=== PATIENT | male | born 1965 | race Caucasian/White ===

== ENCOUNTER 2021-02-13 14:23 | Inpatient (IN) | payer OTHER ==
[2021-02-13 15:01] LABS: PTT,PARTIAL THROMBOPLSTIN TIME 24.7 SEC (25.6-32.8)
[2021-02-13 15:04] LABS: ANION GAP 17.6 mmol/L (5-15); CHLORIDE,CL 103 mmol/L (98-107); SODIUM,NA 141 mmol/L (136-145)
--- NOTE | 2021-02-13 15:13 | EDM.PDOC ---
ED HPI GENERAL MEDICAL PROBLEM - General Chief Complaint: Neuro Symptoms/Deficits Stated Complaint: LEFT SIDED NUMBNESS Time Seen by Provider: 02/13/21 14:23 Source of Information: Reports: Patient History Limitations: Reports: No Limitations - History of Present Illness INITIAL COMMENTS - FREE TEXT/NARRATIVE: She comes into the emergency department as a stroke code. Patient walked in stating that he had left facial numbness left arm numbness and left leg numbness. Patient states that started approximately 15 minutes prior to arrival. Patient states he was just getting ready to pull out of the parking lot when he noticed the numbness and tingling. Patient was at the local [place] arena cooking food throughout most of the weekend. He states that he did do some heavy lifting and twisting motions throughout the weekend but did not notice any issues or difficulty other than his normal aches and pains as he states. He states this was a sudden onset of redness numbness and tingling on the left side. He denies any chest pain, shortness of breath, dizziness, lightheadedness, change in vision, abdominal pain, peripheral edema, or genitourinary concerns. Patient states he is been relatively healthy has no COVID-19 symptoms. Onset: Sudden Location: Reports: Head Quality: Reports: Other Severity: Mild Improves with: Reports: None Worsens with: Reports: Immobilization Associated Symptoms: Reports: Other - Related Data Allergies Allergy/AdvReac Type Severity Reaction Status Date / Time No Known Allergies Allergy Verified 02/13/21 15:53 Home Meds: Home Meds Aspirin 81 mg PO DAILY 02/13/21 [History] atorvaSTATin [Lipitor] 40 mg PO BEDTIME 02/13/21 [History] ED ROS GENERAL - Review of Systems Review Of Systems: Comprehensive ROS is negative, except as noted in HPI. Constitutional: Reports: No Symptoms HEENT: Reports: No Symptoms Respiratory: Reports: No Symptoms Cardiovascular: Reports: No Symptoms Endocrine: Reports: No Symptoms GI/Abdominal: Reports: No Symptoms : Reports: No Symptoms Musculoskeletal: Reports: No Symptoms Skin: Reports: No Symptoms Neurological: Reports: No Symptoms Psychiatric: Reports: No Symptoms Hematologic/Lymphatic: Reports: No Symptoms Immunologic: Reports: No Symptoms ED EXAM, GENERAL - Physical Exam Exam: See Below Exam Limited By: No Limitations General Appearance: Alert, WD/WN, No Apparent Distress Ears: Normal External Exam, Normal Canal, Hearing Grossly Normal, Normal TMs Ear Exam: Bilateral Ear: Auricle Normal, Canal Normal, TM normal Nose: Normal Inspection, Normal Mucosa, No Blood Throat/Mouth: Normal Inspection, Normal Lips, Normal Teeth, Normal Gums, Normal Oropharynx, Normal Voice, No Airway Compromise Head: Atraumatic, Normocephalic Neck: Normal Inspection, Supple, Non-Tender, Full Range of Motion Respiratory/Chest: No Respiratory Distress, Lungs Clear, Normal Breath Sounds, No Accessory Muscle Use, Chest Non-Tender Cardiovascular: Normal Peripheral Pulses, Regular Rate, Rhythm, No Edema, No Gallop, No JVD, No Murmur, No Rub GI/Abdominal: Normal Bowel Sounds, Soft, Non-Tender, No Organomegaly, No Distention, No Abnormal Bruit, No Mass (Male) Exam: No Hernia, Normal Inspection, Normal Prostate, Circumcised Extremities: Normal Inspection, Normal Range of Motion, Non-Tender, Normal Capillary Refill, No Pedal Edema Neurological: Alert, Oriented, CN II-XII Intact, Normal Cognition, Normal Gait, Normal Reflexes, Sensory/Motor Deficit (left side. sharp sensation dulled ) Psychiatric: Normal Affect, Normal Mood Skin Exam: Warm, Dry, Intact, Normal Color, No Rash Lymphatic: No Adenopathy #1 Interpretation EKG Date: 02/13/21 Time: 14:34 Rhythm: NSR [place]: Normal P-Wave: Present QRS: Normal ST-T: Normal QT: Normal Comparison: NA - No Prior EKG Course - Orders/Labs/Meds Orders: Active Orders 24 hr Category Date Time Status Patient Status [ADT] Routine ADT 02/13/21 16:03 Active Height and Weight [RC] UPON Care 02/13/21 16:03 Active Intake and Output [RC] QSHIFT Care 02/13/21 16:04 Active May Shower [RC] Care 02/13/21 16:03 Active Oxygen Therapy [RC] .PRN Care 02/13/21 16:03 Active Up With Assistance [RC] Care 02/13/21 16:03 Active VTE/DVT Education [RC] .PRN Care 02/13/21 16:03 Active Vital Signs [RC] 02,06,10,14,18,22 Care 02/13/21 16:03 Active Consult to Case Management/Wood Scrap Handler [CONS] Cons 02/13/21 16:03 Active Routine Consult to Speech Language Pathology [PLANT PROTECTION OFFICER Evaluation Cons 02/13/21 16:06 Active and Treatment] [CONS] Routine OT Evaluation and Treatment [CONS] Routine Cons 02/13/21 16:03 Active PT Evaluation and Treatment [CONS] Routine Cons 02/13/21 16:03 Active BMP [BASIC METABOLIC PANEL,BMP] [CHEM] Routine Lab 02/14/21 05:11 Ordered CBC WITH AUTO DIFF [HEME] Routine Lab 02/14/21 05:11 Ordered CORONAVIRUS COVID-19 RAPID [MOLEC] Stat Lab 02/13/21 16:01 Ordered Aspirin Med 02/14/21 08:00 Ordered 81 mg PO DAILY Sodium Chloride 0.9% [Normal Saline] 1,000 ml Med 02/13/21 16:15 Ordered IV ASDIRECTED atorvaSTATin [Lipitor] Med 02/13/21 20:00 Ordered 40 mg PO BEDTIME Resuscitation Status Routine Resus Stat 02/13/21 16:03 Ordered Medication Orders Aspirin (Aspirin 81 Mg Tab.Chew) 81 mg PO DAILY RAJESH Atorvastatin Calcium (Atorvastatin 40 Mg Tab) 40 mg PO BEDTIME RAJESH Sodium Chloride (Normal Saline) 1,000 mls @ 50 mls/hr IV ASDIRECTED RAJESH Labs: Laboratory Tests 02/13/21 02/13/21 02/13/21 Range/Units 14:35 14:35 14:35 WBC 7.4 (4.0-10.0) x10^3/uL RBC 4.81 (4.5-6.0) x10^6/uL Hgb 15.0 (14.0-18.0) g/dL Hct 41.6 (40.0-52.0) % MCV 86.5 (78.0-93.0) fL MCH 31.2 (26.0-32.0) pg MCHC 36.1 H (32.0-36.0) g/dL RDW Coeff of [place] 12.1 (10.0-15.0) % Plt Count 247 (130-400) x10^3/uL Immature Gran % (Auto) 0.10 (0.00-0.43) % Neut % (Auto) 75.3 (50.0-80.0) % Lymph % (Auto) 15.7 L (25.0-50.0) % [place] % (Auto) 8.5 (2.0-11.0) % Eos % (Auto) 0.1 (0.0-4.0) % Baso % (Auto) 0.3 (0.2-1.2) % Neut # (Auto) 5.6 (1.8-7.7) x10^3/uL Lymph # (Auto) 1.2 (1.0-4.8) x10^3/uL [place] # (Auto) 0.6 (0.0-0.8) x10^3/uL Eos # (Auto) 0.0 (0.0-0.5) x10^3/uL Baso # (Auto) 0.0 (0.0-0.2) x10^3/uL Immature Gran # (Auto) 0.01 (0.00-0.07) x10^3/uL PT 9.9 (9.9-12.5) SEC INR 0.9 L (2.0-3.5) APTT 24.7 L (25.6-32.8) SEC Sodium 141 (136-145) mmol/L Potassium 3.6 (3.5-5.1) mmol/L Chloride 103 (98-107) mmol/L Carbon Dioxide 24 (21-32) mmol/L Anion Gap 17.6 H (5-15) mmol/L BUN 16 (7-18) mg/dL Creatinine 1.1 (0.70-1.30) mg/dL Est Cr Clr Drug Dosing TNP Estimated GFR (MDRD) > 60 Glucose 95 (70-99) mg/dL Calcium 8.7 (8.5-10.1) mg/dL Troponin I High Sens 5 (<=76) ng/L Meds: Medications Generic Name Dose Route Start Last Admin Trade Name Freq PRN Reason Stop Dose Admin Aspirin 81 mg 02/14/21 08:00 Aspirin 81 Mg Tab.Chew PO DAILY RAJESH Atorvastatin Calcium 40 mg 02/13/21 20:00 Atorvastatin 40 Mg Tab PO BEDTIME [facility] Sodium Chloride 1,000 mls @ 50 mls/hr 02/13/21 16:15 Normal Saline IV ASDIRECTED RAJESH Departure - Departure Time of Disposition: 16:00 Disposition: Admitted As Inpatient 67 Clinical Impression: TIA (transient ischemic attack) - Discharge Information Referrals: Haydee Samson NP [Primary Care Provider] - Forms: ED Department Discharge - My Orders Last 24 Hours: My Active Orders 02/13/21 16:01 CORONAVIRUS COVID-19 RAPID [MOLEC] Stat - Assessment/Plan Last 24 Hours: My Active Orders 02/13/21 16:01 CORONAVIRUS COVID-19 RAPID [MOLEC] Stat Assessment:: 1. Stroke code 2. numbness/tingling left side 3. TIA Plan: 1. Stroke code 2. Labs completed in the ER. Results reviewed with the patient 3. IV initiated in the emergency department 4. NIH Scale- 1 NIH Scale repeated- [address] scan of head completed in ER. Results reviewed 6. Activase administration- not given 7. Patient and nursing staff was updated regarding the plan of care 8. Consultation completed with PA 9. Patient will be transferred to a higher level of care for further medical evaluation and treatment. [facility] and currently they do not feel this patient is appropriate for them. He is needed to be at a higher level of care per neurology consult at [facility]. [facility] does not have any beds currently patient will be admitted to the hospital until availability comes free. 10. Patient and family are agreeable to the above plan of care 11. All questions and concerns were addressed with the patient and family prior to discharge
--- NOTE | 2021-02-13 15:24 | CT ---
[id number] CT/CT Head Stroke Protocol EXAM: CT Head Stroke Protocol CLINICAL DATA: STROKE CODE. COMPARISON STUDY: None FINDINGS: No intracranial hemorrhage, extra-axial fluid collection, mass, or acute ischemia. No hydrocephalus. Calvarium intact. Paranasal sinuses and mastoid air cells are clear. IMPRESSION: No acute intracranial findings. Ermias Roy MD 02/13/21 [id number] Thank you for allowing us to participate in the care of your patient.
[2021-02-13] MEDS: Sodium Chloride 0.9% 1,000 ML IV SCH (17:03)
--- NOTE | 2021-02-13 17:29 | HP ---
CHIEF COMPLAINT: Left-sided weakness. HISTORY OF PRESENT ILLNESS: The patient presented to the emergency room at [facility] as a stroke code. The patient walked in stating that he had a left facial numbness, a left arm numbness, and a left leg weakness. The patient states that his symptoms started about 15 minutes prior to arrival. The patient states he was getting ready to pull out of parking lot when he noticed the numbness and tingling. 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 He states he did do some heavy lifting and twisting motions throughout the weekend, but did not notice any issue or difficulty other than his normal aches and pains as he states. He states this was sudden onset of numbness and tingling of the left side. He denies any chest pain. No shortness of breath. No cough. No headache. The patient denies any dizziness or lightheadedness. No palpitations. The patient states he is relatively healthy. No COVID-19 symptoms. No close contacts or exposures. PAST MEDICAL HISTORY: 1. Shoulder impingement. 2. Chronic prostatitis. 3. BPH. 4. Alcohol abuse. 5. Shoulder arthritis. 6. Elevated blood pressure reading without diagnosis of hypertension. 7. GERD. 8. Chronic back pain. 9. Radiculopathy due to a lumbar intervertebral disk disorder. 10.Chronic neck pain. PAST SURGICAL HISTORY: 1. Cervical disk arthroplasty. 2. Cervical fusion. 3. Colonoscopy. FAMILY HISTORY: Both parents are alive. His father has gout. The patient has 3 sisters, all of which are alive and well. SOCIAL HISTORY: Patient does drink alcohol. Denies any drug use. Patient is a former smoker. ALLERGIES: None. MEDICATIONS: 1. Valium 10 mg. 2. Prednisone 20 mg. 3. Zanaflex 4 mg. 4. Naproxen sodium 220 mg b.i.d. as needed. 5. Colace 100 mg 1 capsule daily as needed. 6. Cholecalciferol 5000 international units daily. 7. Lipitor 40 mg daily at bedtime. 8. Aspirin 81 mg p.o. daily. 9. Claritin 10 mg p.o. daily. LABORATORY STUDIES: 1. CBC: White blood cell count 7.4, hemoglobin 15.0, hematocrit 41.6, platelets 247,000. 2. PT 9.9, INR 0.9, APTT 24.7. 3. BMP: Sodium 141, potassium 3.6, chloride 103, CO2 of 24, anion gap 17.6, BUN 16, creatinine 1.1. GFR greater than 60, glucose 95, calcium 8.7. 4. Troponin is 5. IMAGING STUDIES: A CT of head does not show any intracranial findings. REVIEW OF SYSTEMS: As above. PHYSICAL EXAMINATION: Vital Signs: Per nursing documentation. Skin: Intact, warm, and dry. Cardiovascular: Regular rate and rhythm, no murmurs. Respiratory: Clear to auscultation. Abdomen: Soft, nontender. Bowel sounds are active x4. Neurological: The patient is alert and oriented x3. Cranial nerves intact. Normal cognition, normal reflexes. Sensory deficit on the left side. ASSESSMENT: 1. Numbness and tingling on the left side. 2. Transient ischemic attack. PLAN: The patient will be admitted to the acute care floor at [facility]. The patient will be transferred to. Higher level of care to [facility] in [place] when a bed is available. The Stroke Team at [facility] was contacted and believes the patient needs further neuro workup. Once a bed is available, the patient will be transferred to the Stroke/Neurology Team at [facility] in [place]. The patient is a full code. Continue home medications the same. Consult PT, OT. Case management for discharge planning. This patient was seen and examined by me as an [facility] provider. TB: 02/13/2021 16:25:31 MODL: 02/13/2021 17:11:35 /[id number]
[2021-02-13] MEDS ORDERED: atorvaSTATin 40 MG Tab PO SCH (20:00)
[2021-02-14 06:51] LABS: CHLORIDE,CL 106 mmol/L (98-107); SODIUM,NA 141 mmol/L (136-145)
[2021-02-14 06:52] LABS: ANION GAP 11.8 mmol/L (5-15)
[2021-02-14] MEDS: atorvaSTATin 10 MG Tab PO SCH (07:34)
[2021-02-14] MEDS: Cholecalciferol (Vitamin D3) 5,000 UNIT Tab PO SCH (07:35)
[2021-02-14] MEDS: Loratadine 10 MG Tab PO SCH (07:35)
[2021-02-14] MEDS: Aspirin 81 MG Tab.Chew PO SCH (07:35)
[2021-02-14] MEDS ORDERED: Aspirin 81 MG Tab.Chew PO SCH (08:00)
[2021-02-14] MEDS: Diazepam 5 MG Tab PO STA (11:05)
--- NOTE | 2021-02-14 14:53 | MR ---
[id number] MR/MRI Brain and Stem WWO IV EXAM: BRAIN MRI WITH AND WITHOUT CONTRAST INDICATION: Unilateral weakness, left-sided numbness, and strokelike symptoms for several hours yesterday. COMPARISON: February 13, 2021. DISCUSSION: 4 mm focus of restricted diffusion with T2 hyperintensity in the right frontal lobe precentral gyrus suggesting acute to subacute infarct. No other areas of acute ischemia are identified. Mild chronic small vessel ischemic changes. No mass effect, hemorrhage, midline shift, hydrocephalus or cerebellar tonsillar ectopia. A limited look at the orbits, calvarium and paranasal sinuses is unremarkable. IMPRESSION: 1. Punctate focus of acute ischemia in the precentral gyrus of the right frontal lobe. Meet Brown MD 02/14/21 [id number] Thank you for allowing us to participate in the care of your patient.
--- NOTE | 2021-02-14 22:13 | DISCH ---
Discharge summary from the acute care floor at [facility]. ADMITTING DIAGNOSES: 1. Transient ischemic attack. 2. Numbness and tingling of the left side. DISCHARGE DIAGNOSES: 1. Transient ischemic attack - resolved. 2. Numbness and tingling on the left side - resolved. HISTORY OF PRESENT ILLNESS: A 55-year-old male patient who presented to the emergency room at [facility] as a stroke code. The patient walked in to the emergency room stating that he had left facial numbness, left arm numbness, and left leg weakness. The patient states that his symptoms started about 15 minutes prior to arrival. The patient states he was getting ready to pull out of a parking lot when he noticed the numbness and tingling. 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 He states he did do some heavy lifting and twisting motions throughout the weekend but did not notice any issue or difficulty other than his normal aches and pains. He states his symptoms were sudden onset of numbness and tingling of the left side. He denies any chest pain. No shortness of breath. No cough. No headache. No dizziness or lightheadedness. No palpitations. Patient states he is relatively healthy. No COVID-19 symptoms. No close contacts or exposures. BRIEF HOSPITAL COURSE: The patient remained hemodynamically stable. The patient's symptoms completely resolved prior to discharge. No problems with medications. The patient denies any issues with urination or bowel movements. The patient was able to ambulate independently in the room. The patient was able to take care of his own needs without assistance. CONSULTATIONS: 1. Physical and Occupational Therapy. 2. Case Management. DIET: Regular. ACTIVITY: As tolerated. REVIEW OF SYSTEMS: See HPI. DISCHARGE PHYSICAL EXAMINATION: Vital Signs: Temperature 98.8, pulse 80, blood pressure 118/85, respiratory rate 16, and oxygen saturation 95% on room air. Skin: Intact, warm, and dry. Neurological: The patient is alert and oriented. No focal neurological deficits. Patient is cooperative. No ataxia. No visual field disturbances. Respiratory: Lungs are clear to auscultation. Cardiovascular: Regular rate and rhythm, no murmur. Abdomen: Soft, nontender. Bowel sounds are normoactive x4. Extremities: No edema. DISCHARGE LABORATORY WORK: 1. CBC: White blood cell count 4.2, hemoglobin 14.7, hematocrit 41.3, and platelets 207,000. 2. BMP: Sodium 141, potassium 3.8, chloride 106, CO2 of 27, anion gap 11.8, BUN 15, creatinine 1.0, GFR greater than 60, glucose 91, and calcium 8.4. DISCHARGE IMAGING STUDIES: 1. CT of brain does not show any acute intracranial findings. 2. MRI with and without contrast of brain - results pending. DISCHARGE MEDICATIONS: 1. Aspirin 81 mg 1 tablet p.o. daily. 2. Atorvastatin 20 mg 1 tablet p.o. daily at bedtime. 3. Loratadine 10 mg 1 tablet p.o. daily. 4. Cholecalciferol 5000 international units p.o. daily. ASSESSMENT: 1. Transient ischemic attack - resolved. 2. Numbness and tingling of the left side - resolved. PLAN: The patient will be discharged home today. The patient will follow up with his PCP in 1 week for a hospital discharge followup. Continue home medications the same. We will let the PCP decide if the patient needs any further neurological workup. The patient was discharged in hemodynamically stable condition. Patient is a full code 1. This patient was seen and examined by me as an [facility] provider. TB: 02/14/2021 14:34:39 MODL: 02/14/2021 16:09:03 /[id number]
== END 2021-02-14 14:31 | disposition home or self-care (01) | DRG 69 ==
LOC: VM.ED 14:23 → VM.MS 16:02
PROVIDERS: ADMIT Nurse Practitioner Family; ATTEND Nurse Practitioner Family
DX: G45.9 Transient cerebral ischemic attack, unspecified (principal); N40.0 Benign prostatic hyperplasia without lower urinary tract symptoms; N41.1 Chronic prostatitis; F10.10 Alcohol abuse, uncomplicated; M19.019 Primary osteoarthritis, unspecified shoulder; K21.9 Gastro-esophageal reflux disease without esophagitis; G89.29 Other chronic pain; M54.9 Dorsalgia, unspecified; M54.16 Radiculopathy, lumbar region; M54.2 Cervicalgia; Z98.1 Arthrodesis status; Z79.52 Long term (current) use of systemic steroids; Z79.899 Other long term (current) drug therapy; Z79.82 Long term (current) use of aspirin; Z87.891 Personal history of nicotine dependence; Z20.822 Contact with and (suspected) exposure to COVID-19
CPT/HCPCS: 36415; 70450; 70553; 80048; 84484; 85025; 85610; 85730; 92610-GN; 93010; 97161-GP; 97165-GO; 99283; 99285-25; A9270-GY; J7030; U0002

== ENCOUNTER 2023-05-29 14:06 | Emergency (ER) | payer OTHER ==
[2023-05-29 14:52] LABS: BASOPHILS PERCENT AUTO 0.1 % (0.2-1.2); EOSINOPHILS PERCENT AUTO 0.5 % (0.0-4.0); HEMATOCRIT 50.2 % (40.0-52.0); HEMOGLOBIN 16.9 g/dL (14.0-18.0); IMMATURE GRAN ABSOLUTE AUTO 0.01 x10^3/uL (0.00-0.07); LYMPHOCYTES ABSOLUTE AUTO 1.3 x10^3/uL (1.0-4.8); MEAN CORPUSCULAR HEMOGLOBIN 30.6 pg (26.0-32.0); MEAN CORPUSCULAR HGB CONC 33.7 g/dL (32.0-36.0); MEAN CORPUSCULAR VOLUME 90.8 fL (78.0-93.0); MONOCYTES ABSOLUTE AUTO 0.6 x10^3/uL (0.0-0.8); MONOCYTES PERCENT AUTO 7.5 % (2.0-11.0); NEUTROPHILS ABSOLUTE AUTO 5.7 x10^3/uL (1.8-7.7); NEUTROPHILS PERCENT AUTO 74.8 % (50.0-80.0); PLATELET COUNT,PLT 258 x10^3/uL (130-400); RED BLOOD CELL COUNT 5.53 x10^6/uL (4.5-6.0); WHITE BLOOD CELL COUNT,WBC 7.6 x10^3/uL (4.0-10.0)
[2023-05-29 15:14] LABS: A/G RATIO 1.16; ALANINE AMINOTRANSFERASE,ALT 54 U/L (16-63); ALBUMIN 4.3 g/dL (3.4-5.0); ALKALINE PHOSPHATASE 88 U/L (46-116); ASPARTATE AMNIOTRANSFERASE,AST 27 U/L (15-37); BILIRUBIN TOTAL 0.6 mg/dL (0.2-1.0); BLOOD UREA NITROGEN,BUN 16 mg/dL (7-18); CALCIUM 9.6 mg/dL (8.5-10.1); CARBON DIOXIDE,CO2 28 mmol/L (21-32); CHLORIDE,CL 102 mmol/L (98-107); CREATININE 1.1 mg/dL (0.70-1.30); GLUCOSE RANDOM 101 mg/dL (70-99); MAGNESIUM 2.6 mg/dL (1.8-2.4); POTASSIUM,K 4.4 mmol/L (3.5-5.1); SODIUM,NA 141 mmol/L (136-145)
[2023-05-29 15:15] LABS: ANION GAP 15.4 mmol/L (5-15); ESTIMATED GFR 79 mL/min (>=60)
== END 2023-05-29 15:29 | disposition home or self-care (01) ==
LOC: VM.ED 14:06
DX: Z01.812 Encounter for preprocedural laboratory examination (principal); E78.00 Pure hypercholesterolemia, unspecified; Z79.899 Other long term (current) drug therapy; Z79.82 Long term (current) use of aspirin; Z91.048 Other nonmedicinal substance allergy status
CPT/HCPCS: 36415; 80053; 83735; 84484; 85025; 93005; 93010; 99283; 99285

== ENCOUNTER 2024-09-08 13:06 | Emergency (ER) | payer OTHER ==
[2024-09-08] MEDS: Aspirin 81 MG Tab.Chew PO ONE (13:10)
[2024-09-08] MEDS ORDERED: Sodium Chloride 0.9% 10 ML Syringe FLUSH PRN (13:17)
[2024-09-08 13:23] LABS: BASOPHILS PERCENT AUTO 0.1 % (0.2-1.2); EOSINOPHILS PERCENT AUTO 0.2 % (0.0-4.0); HEMATOCRIT 49.9 % (40.0-52.0); HEMOGLOBIN 17.6 g/dL (14.0-18.0); IMMATURE GRAN ABSOLUTE AUTO 0.01 x10^3/uL (0.00-0.07); LYMPHOCYTES ABSOLUTE AUTO 1.3 x10^3/uL (1.0-4.8); LYMPHOCYTES PERCENT AUTO 15.6 % (25.0-50.0); MEAN CORPUSCULAR HGB CONC 35.3 g/dL (32.0-36.0); MEAN CORPUSCULAR VOLUME 85.2 fL (78.0-93.0); MONOCYTES ABSOLUTE AUTO 0.5 x10^3/uL (0.0-0.8); MONOCYTES PERCENT AUTO 6.4 % (2.0-11.0); NEUTROPHILS ABSOLUTE AUTO 6.4 x10^3/uL (1.8-7.7); NEUTROPHILS PERCENT AUTO 77.6 % (50.0-80.0); PLATELET COUNT,PLT 259 x10^3/uL (130-400); RED BLOOD CELL COUNT 5.86 x10^6/uL (4.5-6.0); WHITE BLOOD CELL COUNT,WBC 8.3 x10^3/uL (4.0-10.0)
[2024-09-08 13:42] LABS: PROTHROMBIN TIME 10.3 SEC (9.6-12.0); PTT,PARTIAL THROMBOPLSTIN TIME 25.4 SEC (23.5-33.2)
[2024-09-08 13:43] LABS: LACTIC ACID 1.2 mmol/L (0.4-2.0)
[2024-09-08 13:53] LABS: A/G RATIO 1.21; ALANINE AMINOTRANSFERASE,ALT 29 U/L (16-63); ALBUMIN 4.1 g/dL (3.4-5.0); ALKALINE PHOSPHATASE 89 U/L (46-116); ASPARTATE AMNIOTRANSFERASE,AST 17 U/L (15-37); BILIRUBIN TOTAL 0.5 mg/dL (0.2-1.0); BLOOD UREA NITROGEN,BUN 12 mg/dL (7-18); CALCIUM 8.9 mg/dL (8.5-10.1); CARBON DIOXIDE,CO2 26 mmol/L (21-32); CHLORIDE,CL 103 mmol/L (98-107); EST CRCL DRUG DOSING (CG) 75.28 mL/min; GLUCOSE RANDOM 104 mg/dL (70-99); POTASSIUM,K 3.8 mmol/L (3.5-5.1); PRO B-TYPE NATRIUR PEPT,BNPPRO 12 pg/mL (<=125); PROTEIN TOTAL,TP 7.5 g/dL (6.4-8.2); SODIUM,NA 137 mmol/L (136-145); TSH ULTRASENSITIVE 2.769 uIU/mL (0.358-3.74)
[2024-09-08 13:54] LABS: ANION GAP 11.8 mmol/L (5-15); C-REACTIVE PROTEIN < 0.50 mg/dL (<=0.50); ESTIMATED GFR 87 mL/min (>=60)
== END 2024-09-08 14:28 | disposition home or self-care (01) ==
LOC: VM.ED 13:06
DX: R07.89 Other chest pain (principal); E78.00 Pure hypercholesterolemia, unspecified; Z79.82 Long term (current) use of aspirin; Z79.899 Other long term (current) drug therapy; Z91.040 Latex allergy status; Z91.09 Other allergy status, other than to drugs and biological substances
CPT/HCPCS: 71045; 80053; 83605; 83735; 83880; 84443; 84484; 85025; 85379; 85610; 85730; 86140; 93005; 99285; A9270